=== PATIENT | male | born 1965 | race Hispanic/Latino ===

== ENCOUNTER 2021-06-06 12:52 | Outpatient (CLI) | payer BC | END 2021-06-06 12:53 | disposition home or self-care (01) | LOC: CSHMRI 12:52 | PROVIDERS: ATTEND Surgery | DX: M54.12 Radiculopathy, cervical region (principal); M54.16 Radiculopathy, lumbar region; M51.26 Other intervertebral disc displacement, lumbar region; M47.812 Spondylosis without myelopathy or radiculopathy, cervical region; M47.816 Spondylosis without myelopathy or radiculopathy, lumbar region | CPT/HCPCS: 72050; 72100; 72141; 72148 ==